=== PATIENT | male | born 1990 | race Caucasian/White ===

== ENCOUNTER 2023-07-10 16:05 | Emergency (ER) | payer OTHER, SELFPAY ==
--- NOTE | ~2023-07-10 | XR_ITS ---
EXAMINATION: XR ankle RT min 3V DATE: 07/10/2023 17:00 INDICATION: Lateral right ankle pain. Injury. TECHNIQUE: 4 views of right ankle were obtained. COMPARISON: None. FINDINGS: There is an oblique fracture of distal fibula with medial aspect of the fracture line 2 mm distal to the level of the tibial plafond. The distal fracture fragment demonstrates 2 mm posterolate ral displacement. Joint spaces are normal. There is ankle soft tissue swelling. IMPRESSION: 1. Oblique fracture of distal fibula. Reviewed, dictated and finalized at location E. [employer]TER OPERATOR
--- NOTE | ~2023-07-10 | XR_ITS ---
EXAMINATION: XR foot RT min 3V DATE: 07/10/2023 17:00 INDICATION: Lateral right foot pain. Injury. TECHNIQUE: 4 views of right foot were obtained. COMPARISON: None. FINDINGS: There is an oblique fracture of distal fibula. The distal fracture fragment demonstrates 2 mm posterolateral displacement. There is mild osteoarthritis of first metatarsophalangeal joint. IMPRESSION: 1. Oblique fracture of distal fibula. Reviewed, dictated and finalized at location E. [employer] WORKER
[2023-07-10 16:12] VITALS: BP 141/81; PULSE 97; RESP 18; TEMP 37.6; O2SAT 99
--- NOTE | 2023-07-10 16:41 | ED.GENADULT ---
HPI - General Adult General Chief complaint: Extremity Injury, Lower Stated complaint: RT FOOT PAIN Time Seen by Provider: 07/10/23 16:17 History of Present Illness HPI narrative: 33yo man presents with right ankle pain and swelling after slipping on the ice 3 days ago. Has been hobbling on it with a cane. No other injuries. Related Data Allergies Allergy/AdvReac Type Severity Reaction Status Date / Time No Known Drug Allergies Allergy nkda Verified 07/10/23 17:34 Review of Systems Review of Systems: All systems reviewed & are unremarkable except as noted in HPI and below Constitutional: Constitutional: Denies chills and Denies fever(s) ENT: Denies dysphagia Cardiovascular: Cardiovascular: Denies chest pain Respiratory: Respiratory: Denies dyspnea Exam Const: General: healthy appearing Nutritional Appearance: well nourished Orientation/consciousness: patient oriented x3 HENMT: Head: normal to inspection and no contusions Eyes: Conjunctivae: conjunctivae normal Resp: Effort & Inspection: normal respiratory effort Cardio: Rate: regular rate GI: Inspection: non-distended Skin: General skin exam: normal color, no jaundice and no pallor Neuro: General: patient oriented x3 and moves all extremities Extrem: Other: right ankle with diffuse ecchymosis of a few days duration (yellow), swelling and tenderness to the lateral malleolus. No medial tenderness. Course Vital Signs Vital signs: Vital Signs Temperature 37.6 C H 07/10/23 16:12 Pulse Rate 97 07/10/23 16:12 Respiratory Rate 18 07/10/23 16:12 Blood Pressure 141/81 H 07/10/23 16:12 Pulse Oximetry 99 07/10/23 16:12 Oxygen Delivery Room Air 07/10/23 16:12 Temperature 37.6 C H 07/10/23 16:12 Pulse Rate 97 07/10/23 16:12 Respiratory Rate 18 07/10/23 16:12 Blood Pressure 141/81 H 07/10/23 16:12 Pulse Oximetry 99 07/10/23 16:12 Oxygen Delivery Room Air 07/10/23 16:12 Medical Decision Making [facility] [place] Narrative Medical decision making narrative: slip and fall DDx ankle sprain, hematoma, fracture. XR to evaluate. Vital Signs Vital Signs: Vital Signs Temperature 37.6 C H 07/10/23 16:12 Pulse Rate 97 07/10/23 16:12 Respiratory Rate 18 07/10/23 16:12 Blood Pressure 141/81 H 07/10/23 16:12 Pulse Oximetry 99 07/10/23 16:12 Oxygen Delivery Room Air 07/10/23 16:12 Temperature 37.6 C H 07/10/23 16:12 Pulse Rate 97 07/10/23 16:12 Respiratory Rate 18 07/10/23 16:12 Blood Pressure 141/81 H 07/10/23 16:12 Pulse Oximetry 99 07/10/23 16:12 Oxygen Delivery Room Air 07/10/23 16:12 Discharge Plan Discharge Clinical Impression: Fibula fracture Qualifiers: Encounter type: initial encounter Fibula location: distal Fracture type: closed Fracture morphology: other fracture Laterality: right Qualified Code(s): S82.831A - Other fracture of upper and lower end of right fibula, initial encounter for closed fracture Patient Disposition: Home, Self-Care Condition: Stable Additional Instructions: Your x-rays show an isolated fracture of the fibula. This is a stable fracture that does not require surgery or casting, but you will need to wear the provided boot at all times when bearing weight (you may temporarily remove it to bathe and to sleep) and you will need to follow-up with Orthopedics for specialist evaluation. You may also add crutches if you prefer but do not place any weight on your unsupported right foot until cleared by Orthopedics. Follow-up with Orthopedics at your earliest convenience. Prescriptions: New (DME) crutches See Rx Instructions .Route .MEDSUPPLY Qty: 1 0RF Rx Instructions: As directed hydrocodone-acetaminophen 5-325 mg tablet 1 tablet PO Q6H PRN (Reason: severe pain only) Qty: 20 0RF Follow-up/Referrals: UNKNOWN,DOCTOR [Primary Care Provider] - Time of Disposition: 17:38
[2023-07-10] MEDS: methocarbamoL 500 MG TABLET 1000 MG PO (18:02)
[2023-07-10] MEDS: HYDROcodone/acetaminophen (*CRX) 5-325 MG TABLET 1 TAB PO (18:02)
[2023-07-10 18:21] VITALS: BP 131/88; PULSE 79; RESP 16; TEMP 37.6; O2SAT 97
== END 2023-07-10 18:23 | disposition home or self-care (01) ==
LOC: CHSED 16:47
PROVIDERS: Emergency Provider Emergency Medicine
DX: S82.831A Other fracture of upper and lower end of right fibula, initial encounter for closed fracture (principal); W00.0XXA Fall on same level due to ice and snow, initial encounter
CPT/HCPCS: 73610; 73630; 99284; A9270; L2112

== ENCOUNTER 2023-08-13 08:08 | Outpatient (CLI) | payer OTHER, SELFPAY ==
--- NOTE | ~2023-08-13 | XR_ITS ---
EXAMINATION: XR ankle RT min 3V DATE: 08/13/2023 08:34 INDICATION: Right ankle pain. TECHNIQUE: 3 views of right ankle were obtained. COMPARISON: Right ankle radiographs 07/10/23 FINDINGS: There is an oblique fracture of distal fibula. The medial aspect of the fracture line is at the level of the tibial plafond. The distal fracture fragment demonstrates 2 mm posterolateral displ acement. No visible callus. Joint spaces are normal. IMPRESSION: 1. Unchanged oblique fracture of distal fibula. Reviewed, dictated and finalized at location A. PACU
== END 2023-08-13 08:09 | disposition home or self-care (01) ==
LOC: CHSIMG 08:11
PROVIDERS: Visit Provider Orthopaedic Surgery
DX: M25.571 Pain in right ankle and joints of right foot (principal)
CPT/HCPCS: 73610

== ENCOUNTER 2023-08-27 10:07 | Outpatient (CLI) | payer OTHER, SELFPAY ==
--- NOTE | ~2023-08-27 | XR_ITS ---
EXAMINATION: XR ankle RT min 3V DATE: 08/27/2023 10:34 INDICATION: Right ankle fracture. Follow-up. TECHNIQUE: 4 views of right ankle were obtained. COMPARISON: Right ankle radiographs 08/13/2023 FINDINGS: There is an oblique fracture of distal fibula with medial aspect of the fracture line 2 mm distal to the level of the tibial plafond. The distal fracture fragment demonstrates 2 mm posterolate ral displacement. Early callus formation is noted. Joint spaces are normal. IMPRESSION: 1. Healing oblique fracture of distal fibula. Reviewed, dictated and finalized at location A.
== END 2023-08-27 10:08 | disposition home or self-care (01) ==
LOC: CHSIMG 10:09
PROVIDERS: Visit Provider Orthopaedic Surgery
DX: S82.431D Displaced oblique fracture of shaft of right fibula, subsequent encounter for closed fracture with routine healing (principal); M25.571 Pain in right ankle and joints of right foot
CPT/HCPCS: 73610